=== PATIENT | male | born 1925 | race Caucasian/White ===

== ENCOUNTER → 2016-11-07 | Outpatient (CLI) | payer OTHER | LOC: FIMAGING 14:43 | PROVIDERS: ATTEND Physician Assistant | DX: M51.36 Other intervertebral disc degeneration, lumbar region (principal); M43.16 Spondylolisthesis, lumbar region; M51.86 Other intervertebral disc disorders, lumbar region; Z98.1 Arthrodesis status ==

== ENCOUNTER 2017-03-30 09:15 | Emergency (ER) | payer OTHER ==
[2017-03-30] MEDS ORDERED: OXYMETAZOLINE 30 ML NASAL SPRAY ONE (10:33)
--- NOTE | 2017-03-30 11:03 | EDPHY ---
H & P Stated Complaint: Nosebleed this morning Source: Patient Exam Limitations: No limitations - Personal History Current Tetanus Diphtheria and Acellular Pertussis (TDAP): Yes Tetanus Vaccine Date: LESS THAN 10 YEARS - Medical/Surgical History Hx Asthma: No Hx Chronic Respiratory Disease: No Hx Diabetes: No Hx Cardiac Disease: No Hx Renal Disease: No Hx Cirrhosis: No Hx Alcoholism: No Hx HIV/AIDS: No Hx Splenectomy or Spleen Trauma: No Other PMH: orthopedic surgeries, prostectomy with radiation. cholesterol. MA in 2016 w/1stent - Social History Smoking Status: Never smoked HPI/ROS: CHIEF COMPLAINT: Nosebleed HISTORY OF PRESENT ILLNESS: She complains of spontaneous bleed that started around 8:30 a.m. this morning. no Trauma or injury. He was leaning over to tie his shoes. Primarily out of the left nostril he thinks. No headache. No dizziness. No chest pain or shortness of breath. Was bleeding heavily with clots intake of his throat that he was coughing up. He applied pressure and called 911. He has significant other than decided to drive to the emergency department. A nose clip immediately placed time of arrival, approximately 9:30 a.m.. He has not had any clot since time of arrival. He takes Plavix due to cardiac stents. He reports that his blood pressure has been normal. He did not blow his nose or cough vigorously this morning. He has no other associated complaints or modifying factors. REVIEW OF SYSTEMS: Ten systems reviewed and are negative unless otherwise noted in the HPI PAST MEDICAL HISTORY: Coronary artery disease, hypertension, previous MA PAST SURGICAL HISTORY: Reviewed SOCIAL HISTORY: Nonsmoker. Retired MD FAMILY HISTORY: Noncontributory EXAMINATION General Appearance: Alert, no distress Head: normocephalic, atraumatic Eyes: Pupils equal and round, no conjunctival pallor or injection ENT, Mouth: Mucous membranes moist. Airway widely patent. There is dried blood around both nostrils. There is dried blood in the posterior pharynx. No active pulsatile bleeding in the posterior pharynx. No active bleeding from either nostril. Neck: Normal inspection, supple, non-tender Respiratory: Lungs are clear to auscultation. No wheezing, rhonchi or crackles Cardiovascular: Regular rate and rhythm. No murmur Skin: Warm and dry, no rash. No petechiae purpura. No ecchymosis Extremities: Nontender, no pedal edema Psychiatric: Mood and affect normal DIFFERENTIAL DIAGNOSES: Including but not limited to epistaxis, anti coagulation, posterior epistaxis, anemia MDM: 10:50 a.m. Spontaneous epistaxis on the patient taking Plavix. At time of my examination the nose bleed that started approximately 2 hours prior. He has a nose clip in place for 90 minutes. I do appreciate had bleeding. Minute Afrin placed the noted. I will re-evaluate in 10-15 minutes. 11:05 a.m. Patient re-evaluated and Afrin administered into both nostrils. Nose clip removed. Recheck at 11:40 a.m. 11:55 a.m. Patient re-evaluated. There is no bleeding. Stable for discharge home. He is to contact his primary care physician. He is to contact his pediatric occupational therapist regarding Plavix during this. He is to contact his established ENT physician. Should the bleeding returned, he is to apply pressure and return to the emergency department. He is comfortable this plan and discharged home stable condition. (Chepe Fishman) Constitutional: Initial Vital Signs Heart Rate 64 03/30/17 09:20 Respiratory Rate 18 03/30/17 09:20 Blood Pressure 147/78 H 03/30/17 09:20 O2 Sat (%) 97 03/30/17 09:20 O2 Delivery Mode Room Air Allergies/Adverse Reactions: No Known Allergies Allergy (Verified 03/30/17 09:21) Home Medications: Medication Instructions Recorded Aspirin EC [Aspirin EC 325 mg (*)] 325 mg PO DAILY #30 tab 03/05/16 Atorvastatin Calcium [Lipitor 40 80 mg PO DAILY #30 tab 03/05/16 mg (*)] Carvedilol [Coreg (*)] 3.125 mg PO BIDMEAL #60 tab 03/05/16 Clopidogrel Bisulfate [Plavix (*)] 75 mg PO DAILY #90 tab 03/05/16 Medical Decision Making ED Course/Re-evaluation: The patient was evaluated and managed by the physician medical records assistant. I have reviewed this chart and I agree with the findings and plan of care as documented , as indicated by my signature. I am the secondary supervising physician. ( Yeni George) - Data Points Laboratory Results: Laboratory Results 03/30/17 11:00 Departure - Departure Disposition: Home, Routine, Self-Care Clinical Impression: Acute anterior epistaxis, Platelet inhibition due to Plavix Condition: Good Instructions: Clopidogrel (By mouth), Nosebleed (ED) Additional Instructions: 1. Contact pediatric occupational therapist regarding Plavix 2. Do not blow your nose for 24-48 hours 3. Afrin [id number] as discussed for the next 1-2 days 4. Contact ENT physician for further care 5. ED precautions as discussed Referrals: Candy Nava MD [Primary Care Provider] - As per Instructions Rafat Ibrahim MD [Medical Doctor] - As per Instructions
[2017-03-30 11:06] LABS: HEMATOCRIT 41.1 % (40.0-51.0); HEMOGLOBIN 13.9 g/dL (13.7-17.5); MEAN CELL HEMOGLOBIN 32.5 pg (27.9-34.1); MEAN CELL HEMOGLOBIN CONCENTR. 33.8 g/dL (32.4-36.7); RED BLOOD CELL COUNT 4.28 10^6/uL (4.40-6.38); RED CELL DISTRIBUTION WIDTH 13.7 % (11.5-15.2)
[2017-03-30 11:16] LABS: APTT 30.7 SEC (23.0-38.0); INR 1.11 (0.83-1.16); PROTIME(PATIENT) 14.2 SEC (12.0-15.0)
[2017-03-30 12:10] VITALS: BP 110/68; PULSE 50; RESP 16; TEMP 98.4; O2SAT 96
== END 2017-03-30 12:15 | disposition home or self-care (01) ==
DX: R04.0 Epistaxis (principal); D69.1 Qualitative platelet defects; I25.2 Old myocardial infarction; I10 Essential (primary) hypertension; I25.10 Atherosclerotic heart disease of native coronary artery without angina pectoris; Z79.82 Long term (current) use of aspirin; Z95.5 Presence of coronary angioplasty implant and graft

== ENCOUNTER → 2017-05-08 | Outpatient (CLI) | payer OTHER ==
[~2017-05-08] MED LIST: DEPO METHYLPREDNISOLONE 40 MG/ML SDV ONE; IOPAMIDOL (ISOVUE 370) 100 ML BTL IV ONE; LIDOCAINE 1% 300 MG/30 ML SDV ONE; ROPIVACAINE HCL 150 MG/30 ML INJ ONE
== END ==
LOC: FIMAGING 09:51
PROVIDERS: ATTEND Radiology Diagnostic Radiology
PROC: 3E0U3BZ Introduction of Anesthetic Agent into Joints, Percutaneous Approach (ICD-10-PCS; principal; 2017-05-08)
PROC: BQ101ZZ Fluoroscopy of Right Hip using Low Osmolar Contrast (ICD-10-PCS; principal; 2017-05-08)
DX: M16.11 Unilateral primary osteoarthritis, right hip (principal)
CPT/HCPCS: 20610; J1030; J2795; Q9967